=== PATIENT | male | born 1960 | race Caucasian/White ===

== ENCOUNTER 2018-06-07 21:40 | Emergency (ER) | payer BC, MEDICAID ==
[2018-06-07] MEDS ORDERED: PROPARACAINE 0.5% OPHTH DROPS 15 ML LEFTEYE STA (21:42)
[2018-06-07 21:50] VITALS: BP 127/84
[2018-06-07] MEDS ORDERED: levoFLOXacin 0.5% OPHTH DROPS 5 ML LEFTEYE STA (22:01)
[2018-06-07] MEDS ORDERED: TETANUS/DIPHTHERIA/PERTUSSIS 0.5 ML SYRINGE IM ONE (22:06)
--- NOTE | 2018-06-07 22:06 | ED Physician Documentation ---
PD HPI OPHTHO - Stated complaint Stated Complaint: POSS FOREIGN OBJ IN LT EYE - Chief complaint Chief Complaint: Heent - History obtained from History obtained from: Patient - History of Present Illness Timing - onset: Last night (He was working at home last night with a table saw and a little piece of wood flew into the left eye and he has it persistently there. No visual changes. He does not wear contacts. Tetanus is unknown.) Review of Systems Constitutional: reports: Reviewed and negative Eyes: reports: Reviewed and negative Ears: reports: Reviewed and negative PD PAST MEDICAL HISTORY - Present Medications Home Medications: Ambulatory Orders Medication Instructions Recorded Confirmed levoFLOXacin 0.5% OPHTH DROPS 1 drops OPTH QID #1 bottle 06/07/18 [Quixin Ophth Drops] - Allergies Allergies/Adverse Reactions: Allergies Allergy/AdvReac Type Severity Reaction Status Date / Time No Known Drug Allergies Allergy Verified 06/07/18 21:50 - Social History Does the pt smoke?: No Smoking Status: Never smoker PD ED PE NORMAL - Vitals Vital signs reviewed: Yes - General General: Alert and oriented X 3, No acute distress - HEENT HEENT: PERRL, EOMI, Other (He is a wood scleral foreign body about a millimeter around. Its on the bulbar conjunctiva just lateral to the cornea. After proparacaine it was removed and there was no Cristobal sign on fluorescein exa mination. No other fluorescein uptake.) - Neck Neck: Supple, no meningeal sign, No bony TTP - Neuro Neuro: Alert and oriented X 3, Normal speech Results - Vitals Vitals: Vital Signs - 24 hr 06/07/18 21:47 Temperature 36.8 C Heart Rate 72 Respiratory 16 Rate Blood Pressure 127/84 H O2 Saturation 99 Oxygen O2 Source Room air Procedures - FB removal FB location: Other (After proparacaine the scleral foreign body was removed using a moistened cotton spud, there was a little bit of staining around the edges of where it was and this was scraped lightly with a 25-gauge needle.) Departure - Departure Disposition: 01 Home, Self Care Clinical Impression: Foreign body of sclera of left eye Qualifiers: Encounter type: initial encounter Qualified Code(s): T15.82XA - Foreign body in other and multiple parts of external eye, left eye, initial encounter Condition: Good Record reviewed to determine appropriate education?: Yes Instructions: ED Eye Particle Conjunctiva FB Rslv Follow-Up: Juni Alvarado MD [Provider Admit Priv/Credential] - Within 3 Days Prescriptions: levoFLOXacin 0.5% OPHTH DROPS [Quixin Ophth Drops] 1 drops OPTH QID #1 bottle Comments: It seems we got the foreign body out in 1 piece but there is still a little staining of the sclera. Follow-up with the eye doctor later this week, you may need a little more scraping. Use the eyedrops several times a day while awake. Return if worsening or if you develop any visual changes.
[2018-06-07] MEDS ORDERED: LEVOBUNOLOL 0.5% ONE (22:17)
[2018-06-07] MEDS ORDERED: levoFLOXacin 0.5% OPHTH DROPS 5 ML ONE (22:26)
== END 2018-06-07 22:31 | disposition home or self-care (01) ==
LOC: ED 21:40
DX: T15.82XA Foreign body in other and multiple parts of external eye, left eye, initial encounter (principal); W20.8XXA Other cause of strike by thrown, projected or falling object, initial encounter; Y92.009 Unspecified place in unspecified non-institutional (private) residence as the place of occurrence of the external cause; Z23 Encounter for immunization
CPT/HCPCS: 65210; 90471; 90715; 99283; A9270; J3490

== ENCOUNTER 2019-01-30 15:08 | Outpatient (CLI) | payer BC ==
--- NOTE | 2019-01-31 10:05 | XRAY Report ---
Reason: PAIN IN RIGHT HAND Procedure Date: 01/30/2019 Accession Number: [id number] / [id number] Procedure: XRS - Hand 3 View RT CPT Code: Final Report FULL RESULT: EXAM: RIGHT HAND RADIOGRAPHY EXAM DATE: 01/30/2019 03:16 PM HISTORY: PAIN IN RIGHT HAND COMPARISON: NONE TECHNIQUE : PA, oblique and lateral three-view exam FINDINGS: Normal articular alignment. No fracture or other bone lesion. No apparent abnormality in the region of the second metacarpal head. Unremarkable soft tissues. IMPRESSION: Normal hand radiographs. RADIA
== END 2019-01-30 15:09 | disposition home or self-care (01) ==
LOC: DI.S 15:08
PROVIDERS: ATTEND Registered Nurse
DX: M79.641 Pain in right hand (principal)

== ENCOUNTER 2022-08-13 12:45 | Outpatient (CLI) | payer OTHER ==
[2022-08-13 14:41] LABS: BASOPHILS % (AUTO) 0.7 %; EOSINOPHILS % (AUTO) 0.7 %; HCT - HEMATOCRIT 41.4 % (42.0-52.0); LYMPHOCYTES % (AUTO) 21.6 %; MEAN CORPUSCULAR HEMOGLOBIN 30.4 pg (27.0-31.0); MEAN CORPUSCULAR HGB CONC 33.8 g/dL (32.0-36.0); MEAN PLATELET VOLUME 10.2 fL (7.4-11.4); MONOCYTES # (AUTO) 0.4 10^3/uL (0.0-1.0); MONOCYTES % (AUTO) 8.1 %; NEUTROPHILS # (AUTO) 3.2 10^3/uL (1.5-6.6); NEUTROPHILS % (AUTO) 68.7 %; PLT - PLATELET COUNT 188 10^3/uL (130-450); RED CELL DISTRIBUTION WIDTH 12.6 % (12.0-15.0); WHITE BLOOD COUNT 4.6 x10^3/uL (4.8-10.8)
[2022-08-13 15:05] LABS: ALBUMIN 3.9 g/dL (3.2-5.5); ALBUMIN/GLOBULIN RATIO 1.3 (1.0-2.2); ALKALINE PHOSPHATASE 38 IU/L (42-121); ALT ALANINE AMINOTRANSFERASE 21 IU/L (10-60); AST ASPARTATE AMINOTRANSFERASE 23 IU/L (10-42); BILIRUBIN,TOTAL 0.8 mg/dL (0.2-1.0); BUN - BLOOD UREA NITROGEN 19 mg/dL (6-20); CALCIUM 9.1 mg/dL (8.5-10.3); CARBON DIOXIDE - CO2 27 mmol/L (21-32); CHLORIDE 102 mmol/L (101-111); CHOLESTEROL 236 mg/dL; CREATININE 0.9 mg/dL (0.6-1.2); GFR - MDRD 86 (>89); GLUCOSE 93 mg/dL (70-100); HDL CHOLESTEROL 78 mg/dL; LDL CHOLESTEROL,CALCULATED 147 mg/dL; LDL/HDL RATIO 1.9 (<3.6); SODIUM 135 mmol/L (135-145); TOTAL PROTEIN 6.8 g/dL (6.7-8.2); TRIGLYCERIDES 53 mg/dL; VLDL CHOLESTEROL 11 mg/dL
== END 2022-08-13 12:46 | disposition home or self-care (01) ==
LOC: LAB.S 12:45
PROVIDERS: ATTEND Nurse Practitioner Acute Care
DX: Z13.228 Encounter for screening for other metabolic disorders (principal); Z12.5 Encounter for screening for malignant neoplasm of prostate; Z13.220 Encounter for screening for lipoid disorders; Z13.29 Encounter for screening for other suspected endocrine disorder; Z13.0 Encounter for screening for diseases of the blood and blood-forming organs and certain disorders involving the immune mechanism
CPT/HCPCS: 36415; 80053; 80061; 83721; 84153; 84443; 85025

== ENCOUNTER 2022-09-11 13:01 | Outpatient (CLI) | payer OTHER ==
--- NOTE | 2022-09-12 11:48 | CT Report ---
PROCEDURE: SINUS SCREENING WO INDICATIONS: FACIAL SWELLING TECHNIQUE: Noncontrast 3.0 mm axial images acquired from the frontal sinuses to the mid-sella, with coronal and sagittal reformats. For radiation dose reduction, the following was used: automated exposure control , adjustment of mA and/or kV according to patient size. COMPARISON: None. FINDINGS: Image quality: Excellent. Maxillary Sinuses: No bony remodeling or destruction. Mucosal thickening with some frothy secretions . Ethmoid Air Cells: No bony remodeling or destruction. Partial opacification. Sphenoid Sinuses: No bony remodeling or destruction. Sinuses are clear. Frontal Sinuses: No bony remodeling or destruction. Mild mucosal thickening.. Ostiomeatal Complexes: Ostiomeatal complexes are opacified. Small right Bridger cell. Miscellaneous: Visualized intra-orbital contents are normal. Left markus bullosa. Mild leftward n moni septal deviation. IMPRESSION: Scattered paranasal sinus mucosal disease as described above with frothy secretions in the maxillary sinuses, likely representing acute sinusitis. Reviewed by: Marcel Horowitz MD on 09/12/2022 11:47 AM PDT Approved by: Marcel Horowitz MD on 09/12/2022 11:47 AM PDT Station ID: [id number]
== END 2022-09-11 13:02 | disposition home or self-care (01) ==
LOC: DI 13:01
PROVIDERS: ATTEND Nurse Practitioner Acute Care
DX: J32.8 Other chronic sinusitis (principal)

== ENCOUNTER 2023-07-25 11:47 | Outpatient (CLI) | payer OTHER ==
[2023-07-25 14:32] LABS: BASOPHILS % (AUTO) 0.7 %; EOSINOPHILS # (AUTO) 0.1 10^3/uL (0.0-0.7); EOSINOPHILS % (AUTO) 1.5 %; HCT - HEMATOCRIT 41.3 % (42.0-52.0); HGB - HEMOGLOBIN 13.9 g/dL (14.0-18.0); LYMPHOCYTES # (AUTO) 1.2 10^3/uL (1.5-3.5); LYMPHOCYTES % (AUTO) 25.6 %; MEAN CORPUSCULAR HEMOGLOBIN 30.4 pg (27.0-31.0); MEAN CORPUSCULAR HGB CONC 33.7 g/dL (32.0-36.0); MEAN CORPUSCULAR VOLUME 90.4 fL (80.0-94.0); MEAN PLATELET VOLUME 10.3 fL (7.4-11.4); MONOCYTES # (AUTO) 0.4 10^3/uL (0.0-1.0); MONOCYTES % (AUTO) 8.6 %; NEUTROPHILS # (AUTO) 2.9 10^3/uL (1.5-6.6); NEUTROPHILS % (AUTO) 63.6 %; PLT - PLATELET COUNT 202 10^3/uL (130-450); RED BLOOD COUNT 4.57 10^6/uL (4.70-6.10); RED CELL DISTRIBUTION WIDTH 12.7 % (12.0-15.0); WHITE BLOOD COUNT 4.5 x10^3/uL (4.8-10.8)
[2023-07-25 15:00] LABS: ALBUMIN 4.4 g/dL (3.2-5.5); ALBUMIN/GLOBULIN RATIO 1.8 (1.0-2.2); ALKALINE PHOSPHATASE 51 IU/L (42-121); ALT ALANINE AMINOTRANSFERASE 23 IU/L (10-60); AST ASPARTATE AMINOTRANSFERASE 22 IU/L (10-42); BILIRUBIN,TOTAL 0.7 mg/dL (0.2-1.0); BUN - BLOOD UREA NITROGEN 20 mg/dL (6-20); CALCIUM 9.5 mg/dL (8.5-10.3); CARBON DIOXIDE - CO2 30 mmol/L (21-32); CHLORIDE 103 mmol/L (101-111); CHOL/HDL RATIO 3.6 (<5.0); CHOLESTEROL 245 mg/dL; GFR - MDRD 75 (>89); GLUCOSE 94 mg/dL (74-104); HDL CHOLESTEROL 69 mg/dL; LDL CHOLESTEROL,CALCULATED 166 mg/dL; LDL/HDL RATIO 2.4 (<3.6); POTASSIUM 4.3 mmol/L (3.5-4.5); SODIUM 137 mmol/L (135-145); TOTAL PROTEIN 6.8 g/dL (6.4-8.9); TRIGLYCERIDES 52 mg/dL (48-352); VLDL CHOLESTEROL 10 mg/dL
[2023-07-25 15:01] LABS: THYROID STIMULATING HORMONE 1.98 uIU/mL (0.34-5.60)
== END 2023-07-25 11:48 | disposition home or self-care (01) ==
LOC: LAB.S 11:47
PROVIDERS: ATTEND Nurse Practitioner Acute Care
DX: Z13.228 Encounter for screening for other metabolic disorders (principal); Z13.220 Encounter for screening for lipoid disorders; Z13.29 Encounter for screening for other suspected endocrine disorder; Z13.0 Encounter for screening for diseases of the blood and blood-forming organs and certain disorders involving the immune mechanism
CPT/HCPCS: 36415; 80053; 80061; 83721; 84443; 85025